=== PATIENT | female | born 1965 | race Caucasian/White ===

== ENCOUNTER 2021-02-25 07:52 | Outpatient (CLI) | payer OTHER, SELFPAY ==
--- NOTE | ~2021-02-25 | DEXA_ITS ---
Bone Density Report Name: Gayatri Marr Age: 55 Sex: Female Ethnicity: White Date of : 1965 Indication: postmenopausal; parental hip fracture; Referring Provider: Vasquez Gary Study: Bone densitometry was performed. Exam Date: February 25, 2021 Accession number: [id number] Bone Density: Region BMD T-score Z-score Classification AP Spine (L1-L4) 0.939 -1.0 0.2 Normal Femoral Neck (Left) 0.629 -2.0 -0.8 Osteopenia Total Hip (Left) 0.910 -0.3 0.5 Normal Total Hip Bilateral Avg 0.897 -0.4 0.4 Normal Femoral Neck (Right) 0.672 -1.6 -0.4 Osteopenia Total Hip (Right) 0.883 -0.5 0.3 Normal World Health Organization criteria for BMD impression classify patients as: Normal (T-score at or above -1.0), Osteopenia (T-score between -1.0 and -2.5), or Osteoporosis (T-score at or below -2.5). 10-year Fracture Risk(1): Major Osteoporotic Fracture 15% Hip Fracture 0.9% Reported Risk Factors: [place] (), Neck BMD=0.629, BMI=32.4, parental fracture (1) FRAX(R) Version 3.08. Fracture probability calculated for an untreated patient. Fracture probability may be lower if the patient has received treatment. Previous Exams: Region Exam Age BMD T-score BMD Change BMD Change Date g/cm2 vs Baseline vs Previous AP Spine(L1-L4) 02/25/2021 55 0.939 -1.0 -0.065(-6.5%)# -0.047(-4.8%)* 10/06/2018 52 0.986 -0.6 -0.018(-1.8%)# -0.018(-1.8%)# 11/29/2003 38 1.004 -0.4 Total Hip(Left) 02/25/2021 55 0.910 -0.3 -0.021(-2.2%)# 0.038(4.4%)* 10/06/2018 52 0.871 -0.6 -0.059(-6.3%)# -0.059(-6.3%)# 11/29/2003 38 0.930 -0.1 Total Hip(Right) 02/25/2021 55 0.883 -0.5 -0.045(-4.9%)# -0.005(-0.6%) 10/06/2018 52 0.888 -0.4 -0.040(-4.3%)# -0.040(-4.3%)# 11/29/2003 38 0.928 -0.1 *Denotes significance at 95% confidence level, LSC for AP Spine = 0.022 g/cm2, LSC for Total Hip = 0.027 g/cm2 Clinical Information Provided by Patient: Parent has had a hip fracture Has used the following medications: Vitamin D, Calcium Patient maximum height was 63 Menopause Age: 45 No regular weight bearing exercise Drinks caffeinated beverages Onset of menses at age 12 Number of children 2 Impression: The patient has low bone mass, based on the Left Femoral Neck T-score. The patient has an estimated ten-year risk of hip fracture of 0.9% and an estimated ten-year risk of major fracture of 15%, based on the WHO FRAX algorithm. The patient has risk
--- NOTE | ~2021-02-25 | MM_ITS ---
EXAMINATION: MM screening jessica BI w keon HISTORY: Screening TECHNIQUE: Craniocaudal and mediolateral oblique 3-D tomosynthesis images were obtained and synthetic 2-D images were generated. CAD analysis was submitted and interpreted. COMPARISON: Comparison to multiple prior studies sequentially, with oldest reviewed study dated 03/21. BREAST PARENCHYMAL COMPOSITION: There are scattered areas of fibroglandular density. FINDINGS: There is no evidence of suspicious mass, calcification, or architectural distortion to sugg est malignancy in either breast. There has been no suspicious interval change. IMPRESSION: 1. No mammographic evidence of malignancy. 2. Recommend routine screening mammography in one year. BI-RADS Category 1: Negative Reviewed, dictated and finalized at location A.
== END 2021-02-25 07:53 | disposition home or self-care (01) ==
LOC: ANHIMG 07:54
PROVIDERS: PCP Family Medicine; Visit Provider Physician Assistant
DX: Z12.31 Encounter for screening mammogram for malignant neoplasm of breast (principal); Z13.820 Encounter for screening for osteoporosis; M85.852 Other specified disorders of bone density and structure, left thigh; M85.851 Other specified disorders of bone density and structure, right thigh
CPT/HCPCS: 77063; 77067; 77080

== ENCOUNTER 2022-06-27 08:03 | Outpatient (CLI) | payer OTHER, SELFPAY ==
--- NOTE | ~2022-06-27 | MM_ITS ---
EXAMINATION: MM screening jessica BI w keon HISTORY: Screening mammogram TECHNIQUE: Craniocaudal and mediolateral oblique 3-D tomosynthesis images were obtained and synthetic 2-D images were generated. CAD analysis was submitted and interpreted. COMPARISON: 02/25/2021, 11/15/2019, 10/06/2018 BREAST PARENCHYMAL COMPOSITION: There are scattered areas of fibroglandular density. FINDINGS: Scattered benign-appearing calcifications are present. There is no suspicious mass, calcifi cation, or architectural distortion to suggest malignancy in either breast. There has been no suspici ous interval change. IMPRESSION: 1. No mammographic evidence of malignancy. 2. Recommend routine screening mammography in one year. BI-RADS Category 2: Benign finding(s). Reviewed, dictated and finalized at location A.
== END 2022-06-27 08:04 | disposition home or self-care (01) ==
LOC: ANHIMG 08:05
PROVIDERS: PCP Family Medicine; Visit Provider Physician Assistant
DX: Z12.31 Encounter for screening mammogram for malignant neoplasm of breast (principal)
CPT/HCPCS: 77063; 77067

== ENCOUNTER 2023-02-05 15:52 | Emergency (ER) | payer OTHER, SELFPAY ==
--- NOTE | 2023-02-05 16:01 | ED.FEMALEGU ---
HPI - Female Genitourinary General Chief complaint: Urogenital-Female Stated complaint: UTI SYMPTOMS Source: patient and RN notes reviewed Mode of arrival: ambulatory Limitations: no limitations History of Present Illness HPI Narrative: [age] year old female presented for complaint of urinary frequency and urgency, and feels she is urinating less amount. Onset yesterday. Denies dysuria, hematuria, abdominal pain, flank pain, n/v/d/f/c. States last UTI was 18 months ago. Not taking anything for symptoms. Related Data Allergies Allergy/AdvReac Type Severity Reaction Status Date / Time No Known Allergies Allergy Verified 02/05/23 15:59 Review of Systems Review of Systems: CONSTITUTIONAL: Denies body aches, fever, chills, or sweats. CARDIOVASCULAR: Denies chest pain, palpitations, or edema. RESPIRATORY: Denies cough or dyspnea. GASTROINTESTINAL: Denies abdominal pain, nausea, vomiting, or diarrhea. GENITOURINARY: Reports frequency, urgency denies dysuria, hematuria, flank pain SKIN: Denies rash, itching, or wounds. MUSCULOSKELETAL: Denies back pain or myalgia. [facility]LY [facility] Past Medical History Medical History GERD (gastroesophageal reflux disease) Hx of adenomatous colonic polyps Hyperlipidemia Surgical History Surgical History Hx laparoscopic cholecystectomy Hx of colonoscopy Family History Family History Father Family history of malignant neoplasm of esophagus Hypertension Mother Family history of hypercholesterolemia Hypertension Family history of arthritis Grandparent Hypertension Other Family history of malignant neoplasm of breast in first degree relative Social History Social History Smoking status: Never smoker Alcohol intake: current Drinks per week: 3 Alcohol use details: beer wine Lack of Transportation: No Lack of Food: Never True Current Housing: I Have Housing Concerned About Future Housing: No Difficulty Paying Gas/Electric Bills: No Difficulty Paying for Meds: No Currently Unemployed: No Education: Master's Degree or Higher Difficulty w/ Childcare or Family Care: No Comments At time of signature, I have reviewed and agree with nursing past medical, surgical, social and family history unless otherwise noted. Please see nursing chart for further information. There is no relevant family history pertinent to the presenting complaint Exam Narrative: GENERAL: Well-appearing and in no acute distress. HEAD: Normocephalic EYES: EOMI. . ENT: Mucous membranes pink and moist. NECK: Normal AROM. Supple. CHEST: No respiratory distress. Clear to auscultation. HEART: Regular rate and rhythm. ABDOMEN: Soft, nontender, nondistended, normal active bowel sounds. No CVA tenderness MUSCULOSKELETAL: No bony tenderness. SKIN: Warm, dry, no rash. NEURO: No focal deficits. Alert and oriented x3. Gait steady. PSYCH: Normal affect. No signs of depression or anxiety. Course Course Emergency Course: Patient is aware of diagnosis, understands and agrees to treatment plan. Anticipatory guidance given. Patient agrees to follow-up as directed and is aware of reasons to seek care at the emergency department. Portions of this record may have been created with voice recognition software Level of Care: Express Care Visit Vital Signs Vital signs: Reviewed MDM - Female Genitourinary MDM Narrative Medical decision making narrative: Results of urine reviewed with patient. Advised supportive measures and signs/symptoms to go to the ER. Pt is appropriate for outpt treatment and f/u. Differential Diagnosis Differential diagnosis: Likely urinary tract infection and cystitis Discharge Plan Discharge Clinical Impression: Urinary tract
[2023-02-05 16:03] VITALS: BP 142/83; PULSE 104; RESP 16; TEMP 36.5; O2SAT 98
== END 2023-02-05 16:19 | disposition home or self-care (01) ==
PROVIDERS: Emergency Provider Nurse Practitioner Family; PCP Family Medicine
DX: N39.0 Urinary tract infection, site not specified (principal); K21.9 Gastro-esophageal reflux disease without esophagitis; E78.5 Hyperlipidemia, unspecified
CPT/HCPCS: 81003; 87086; 87088; 99213; G0463

== ENCOUNTER 2023-08-25 16:29 | Outpatient (CLI) | payer OTHER, SELFPAY ==
--- NOTE | ~2023-08-25 | MM_ITS ---
EXAMINATION: MM screening [facility] BI w keon HISTORY: Screening mammogram TECHNIQUE: Craniocaudal and mediolateral oblique 3-D tomosynthesis images were obtained and synthetic 2-D images were generated. CAD analysis was submitted and interpreted. COMPARISON: 06/27/2022, 02/25/2021, 11/15/2019 BREAST PARENCHYMAL COMPOSITION: There are scattered areas of fibroglandular density. FINDINGS: RIGHT BREAST: There is a low-density mass in the middle third of the upper-outer quadrant breast appr oximately 8 cm from the nipple. LEFT BREAST: No suspicious mass, calcification, or architectural distortion are identified to suggest malignancy. There has been no suspicious interval change. IMPRESSION: 1. Right breast mass. 2. Additional mammographic views and possible breast ultrasound are recommended. BI-RADS Category 0: Incomplete: Needs additional imaging evaluation. Reviewed, dictated and finalized at location A. IMPRESSION: 1. Right breast mass. 2. Additional mammographic views and possible breast ultrasound are recommended . BI-RADS Category 0: Incomplete: Needs additional imaging evaluation.
== END 2023-08-25 16:30 | disposition home or self-care (01) ==
LOC: ANHIMG 16:32
PROVIDERS: PCP Family Medicine; Visit Provider Family Medicine
DX: Z12.31 Encounter for screening mammogram for malignant neoplasm of breast (principal); R92.8 Other abnormal and inconclusive findings on diagnostic imaging of breast
CPT/HCPCS: 77063; 77067

== ENCOUNTER 2023-09-15 09:15 | Outpatient (CLI) | payer OTHER, SELFPAY ==
--- NOTE | ~2023-09-15 | MMUS_ITS ---
EXAMINATION: MM diagnostic jesscia RT w koen, US breast RT limited HISTORY: Low density mass in middle third of upper inner quadrant of right breast approximately 8 cm from nipple was reported on 08/25/2023 2 bilateral screening mammogram TECHNIQUE: Additional 3-D tomosynthesis images of the right breast were performed and synthetic 2-D i mages were generated. CAD analysis was submitted and interpreted. High resolution upper outer quadran t right breast ultrasound was performed. COMPARISON: 08/25/2023 monos screening mammogram FINDINGS: MAMMOGRAPHIC FINDINGS: Approximately 3 mm circumscribed mass with halo sign is confirmed posteriorly in the upper outer righ t breast, benign in appearance mammographically, likely a small cyst. ULTRASOUND: 11:00 5 cm from nipple: 2 x 3.4 x 3.3 mm circumscribed oval sonolucency without internal vascularity or posterior shadowing, consistent with small cyst or other benign process. IMPRESSION: 1. Benign finding 2. Routine annual mammographic screening is recommended BI-RADS Category 2: Benign finding(s). Reviewed, dictated and finalized at location A. ITY TESTER IMPRESSION: 1. Benign finding 2. Routine annual mammographic screening is recommended BI-RADS Category 2: Benign finding(s).
== END 2023-09-15 09:16 ==
LOC: MICIMG 09:16
PROVIDERS: PCP Family Medicine; Visit Provider Family Medicine
DX: R92.8 Other abnormal and inconclusive findings on diagnostic imaging of breast (principal)
CPT/HCPCS: 76642; 77061; 77065; G0279

== ENCOUNTER 2025-02-22 11:05 | Outpatient (CLI) | payer OTHER, SELFPAY ==
--- NOTE | ~2025-02-22 | MM_ITS ---
EXAMINATION: MM screening jessica BI w keon HISTORY: Screening TECHNIQUE: Craniocaudal and mediolateral oblique 3-D tomosynthesis images were obtained and synthetic 2-D images were generated. CAD analysis was submitted and interpreted. COMPARISON: Comparison to multiple prior studies sequentially, with oldest reviewed study dated 09/25. BREAST PARENCHYMAL COMPOSITION: Not dense: There are scattered areas of fibroglandular density. FINDINGS: There is no evidence of suspicious mass, calcification, or architectural distortion to sugg est malignancy in either breast. There has been no suspicious interval change. IMPRESSION: 1. No mammographic evidence of malignancy. 2. Recommend routine screening mammography in one year. BI-RADS Category 1: Negative Reviewed, dictated and finalized at location A.
== END 2025-02-22 11:06 | disposition home or self-care (01) ==
LOC: MICIMG 11:06
PROVIDERS: PCP Family Medicine; Visit Provider Family Medicine
DX: Z12.31 Encounter for screening mammogram for malignant neoplasm of breast (principal)
CPT/HCPCS: 77063; 77067

== ENCOUNTER 2025-06-02 07:36 | Outpatient (CLI) | payer OTHER, SELFPAY ==
--- NOTE | ~2025-06-02 | DEXA_ITS ---
Bone Density Report Name: DONALD PURVIS Age: 59 Sex: Female Ethnicity: White Date of : 1965 Indication: postmenopausal; screening for osteoporosis; parental hip fracture; Referring Provider: FANY FELIPE Study: Bone densitometry was performed. Exam Date: June 02, 2025 Accession number: [id number] Bone Density: Region BMD T-score Z-score Classification AP Spine(L1-L4) 0.905 -1.3 0.2 Osteopenia Femoral Neck (Left) 0.677 -1.5 -0.2 Osteopenia Total Hip (Left) 0.899 -0.4 0.7 Normal Femoral Neck (Right) 0.719 -1.2 0.2 Osteopenia Total Hip (Right) 0.885 -0.5 0.6 Normal Total Hip Mean 0.892 -0.5 0.7 Normal World Health Organization criteria for BMD impression classify patients as: Normal (T-score at or above -1.0), Osteopenia (T-score between -1.0 and -2.5), or Osteoporosis (T-score at or below -2.5). 10-year Fracture Risk(1): Major Osteoporotic Fracture 16% Hip Fracture 0.7% Reported Risk Factors: [place] (), Neck BMD=0.677, BMI=31.7, parental fracture (1) FRAX(R) Version 3.08. Fracture probability calculated for an untreated patient. Fracture probability may be lower if the patient has received treatment. Clinical Information Provided by Patient: Parent has had a hip fracture Has used the following medications: Vitamin D, Calcium Patient maximum height was 62 Menopause Age: 45 Drinks caffeinated beverages Onset of menses at age 11 Number of children 2 Impression: The patient has low bone mass, based on the Left Femoral Neck T-score. The patient has an estimated ten-year risk of hip fracture of 0.7% and an estimated ten-year risk of major fracture of 16%, based on the WHO FRAX algorithm. The patient has risk factors, including: parental hip fracture. Discussion: BONE DENSITY IS LOW AT ONE OR MORE SKELETAL SITES. This patient's lowest T-score is low at one or more skeletal sites. It meets the World Health Organization's (WHO) criteria for ?low bone mass? (T-score between -1.0 and -2.5). The patient's 10-year risk of fracture as calculated by FRAX is less than the threshold where pharmacological therapy is recommended by the National Osteoporosis Foundation (NOF). However, all treatment decisions require clinical judgment and consideration of individual patient factors, including patient preferences, comorbidities, previous drug use, risk factors not captured in the FRAX model (e.g., frailty, falls, vitamin D deficiency, increased bone turnover, interval significant decline in bone density) and possible under or overestimation of fracture risk by FRAX. The patient should follow a healthful lifestyle (good nutrition with adequate calcium and vitamin D, and appropriate weight-bearing exercise). Follow-Up: Consider repeating this study in 2 to 3 years to reassess this patient's status, or sooner if there is some new clinical indication. Reported by: AISLINN on 06/02/2025 8:15:00 AM. Reviewed, dictated and finalized at location A.
--- OUTSIDE RECORDS SUMMARY | 2025-06-02 07:40 | XMS_ITS | Clinical Summary ---
Author Organization [facility] Address [address], [facility] [address] [place] [address] Phone Care Team Providers Care Variety Saw Operator Name Role Phone Kody Kraus MD Primary Care Provider [phone] Allergies No known active allergies Medications fluticasone (FLOVENT HFA) 220 MCG/ACT Aerosol take 2 Puffs by inhalation 2 times daily. Active Ferrous Sulfate (IRON) 325 (65 FE) MG Tablet daily. Active calcium 500 MG Tablet daily. Active Multiple Vitamin (MULTIVITAMINS) Capsule daily. Active omeprazole (PRILOSEC) 20 MG CAPSULE DELAYED RELEASE daily. Acti ve triamterene-hyd rochlorothiazid e (MAXZIDE) 37.5-25 MG Tablet daily. Active polyethylene glycol (MIRALAX) Powder Mix the entire bottle with 64 oz of a clear liquid. Use as directed by the office for colonoscopy prep. 255 g 0 6 Active Active Problems Problem Noted Date Diagnosed Date Eosinophilic esophagitis Overview (10/22/2015): Presently considerably improved. Colon polyp, hyperplastic GERD (gastroesophageal reflux disease) Overview (10/22/2015): Controlled with omeprazole once a day Adenomatous colon polyp Overview (10/22/2015): multiple Social History Tobacco Use Types Packs/Day Years Used Date Smoking Tobacco: Never Assessed Comments Unknown Sex and Gender Information Value Date Recorded Sex Assigned at Not on file Legal Sex Female 11:41 PM CDT Gender Identity Not on file Sexual Orientation Not on file Plan of Treatment Health Maintenance Due Date Last Done Comments Hepatitis C Virus (HCV) Screening 1965 TdaP Immunization 1965 Pap Smear 1984 Cervical Cancer Screening (CCS) 1993 HPV/Cotest 1993 Cologuard 2008 Immunochemical Fecal Occult Blood 2008 Pneumococcal Immunization (5 0+ years) (1 of 1 - PCV) 2013 Zoster Immunization (1 of 2) 2013 Colonoscopy 10/13/2022 10/13/2019, 07/30/2016, 04/26/2015 Colorectal Cancer Screening 10/13/2022 SARS-COV-2 Immunization ( - 2023- season) 2024 Influenza Immunization (#1) 2025 Respiratory Syncytial Virus (RSV) Immunization (Adult) (1 - 1-dose 75+ series) 2038 Hepatitis B Immunization Aged Out No longer eligible based on patient's age to complete this topic Human Papillomavirus (HPV) Immunization Aged Out No longer eligible b ased on patient's age to complete this topic Meningococcal Immunization (ACWY) Aged Out No longer eligible b ased on patient's age to complete this topic Rotavirus Immunization Aged Out No lo nger eligible based on patient's age to complete this topic Procedures Procedure Name Priority Date/Time Associated Diagnosis Comments COLONOSCOPY Routine 10/13/2019 from Last 3 Months or Most Recently Relevant to Health Maintenance Results * COLONOSCOPY (10/13/2019) Vamshi Huffman DO PROCEDURE/MINOR SURGICAL ORDERA BLES Final Result from Last 3 Months or Most Recently Relevant to Health Maintenance Insurance [facility] Care Teams Variety Saw Operator Relationship Specialty Start Date End Date Kody Kraus MD [address] [place] [address] PCP - General Family Medicine 08/01/16
--- OUTSIDE RECORDS SUMMARY | 2025-06-02 07:40 | XMS_ITS | Clinical Summary ---
Author Organization [facility] Address [address] [place] [address] Care Team Providers Care Instructor Industrial Design Name Role Phone Unavailable Primary Care Provider Unavailabl e Allergies No known active allergies Encounters Date Type Department Care Team Description 05/30/2025 External Device Data ST[facility] ABSTRACTION Provider, Abstract 04/18/2025 External Device Data [facility] ABSTRACTION Provider, Abstract 03/21/2025 External Device Data ST[facility] ABSTRACTION Provider, Abstract 03/14/2025 External Device Data ST[facility] ABSTRACTION Provider, Abstract from Last 3 Months Immunizations Immunization Administration Dates Next Due (COMIRNATY)(12 YR UP) COVID- 19 VACCINE, MRNA, SPIKE PROTEIN, LNP, JOZEF(PF) 30 MCG/0.3 ML IM SUSP 08/14/2023 (SHINGRIX)(50 YRS UP) ZOSTER VACCINE RECOMBINANT, 0.5 ML, IM 02/19/2023 INFLUENZA VACCINE QUADRIVALENT 6 MOS UP PF IM ,09/01/2022 Social History Tobacco Use Types Packs/Day Years Used Date Smoking Tobacco: Never Assessed Comments Unknown Sex and Gender Information Value Date Recorded Sex Assigned at Not on file Legal Sex Female 11:10 AM CLIENT MANAGER Gender Identity Not on file Sexual Orientation Not on file Plan of Treatment Health Maintenance Due Date Last Done Comments DTAP/TDAP/TD VACCINES (1 - Tdap) 1982 HPV/Cotest (21-29) 1984 CERVICAL CANCER SCREENING 1993 HPV/Cotest (30-65) 1993 PAP SMEAR 1993 BREAST CANCER SCREENING 2003 COLORECTAL SCREENING 2008 Colorectal Cancer Screening 2008 FIT-DNA Q 3 years 2008 FIT/FOBT Q 1 year 2008 Flex Sig/CT Colonography Q 5 years 2008 ZOSTER VACCINE (2 of 2) 04/16/2023 02/19/2023 COVID-19 Vaccine (2 - 2024-25 season) 2024 INFLUENZA VACCINE (#1) 2025 08/13/2023, 2021 RSV VACCINE (60+ or ) (1 - 1-dose 75+ series) 2038 Insurance RX [facility] [employer]
--- OUTSIDE RECORDS SUMMARY | 2025-06-02 07:40 | XMS_ITS | Clinical Summary ---
Author Organization [facility] Address [address] [place] [address] Care Team Providers Care Coal Screener Name Role Phone Tigist Lemons MD Primary Care Provider [phone] Source Comments [facility],non-owned Affiliates and Associated Physician Practices is amultiple site organization consisting of ambulatory clinics and hospital sitesin [place], [place], [place] and [place]. This disclosure is being madepursuant to the Care Everywhere program and may not contain all information available regarding this patient. Last updated 18.[facility] Allergies No known active allergies Medications * Be aware that medications may not be up to date on this document. Alwaysverify current medications with the patient. omeprazole (PRILOSEC) 20 MG capsule 7 Active metFORMIN ER 24hr (GLUCOPHAGE XR) 500 MG tablet 1 (one) tablet DAILY 6 Active triamterene-hydro CHLOROthiazide (MAXZIDE-25) 37.5-25 MG tablet TK 1 T PO QAM. GEF MAXZIDE 1 8 Active atorvastatin (LIPITOR) 20 MG tablet Take 1 (one) tablet by mouth once daily 1 8 Active losartan (Cozaar) 25 MG tablet Take 1 (one) tablet by mouth once daily 4 Active Tirbanibulin (Klisyri) 1 % OINTIndications:A ctinic Keratosis 1 packet by Apply externally route once daily after dinner Limit each treatment area to 100 cm^2 Reasons: Actinic Keratosis 5 Each 3 5 Active fluorouracil (Efudex) 5 % creamIndications: Actinic Keratosis Apply to affected area twice daily for two weeks. Reasons: Actinic Keratosis 40 g 5 Active triamcinolone acetonide (Kenalog) 0.1 % creamIndications: Notalgia paresthetica Apply to itchy rash on torso twice daily. 30 days supply. 80 g 5 Active Active Problems Problem Noted Date Diagnosed Date Actinic keratoses 11/01/2020 Assessment & Plan (11/01/2020 11:01 AM JAR FILLER): Multiple Chest and forearms Plan field therapy with efudex cream BID x 2 weeks We reviewed expected response Adenomatous colon polyp 05/10/2018 Overview (05/10/2018): Overview: multiple Colon polyp, hyperplastic 05/10/2018 Eosinophilic esophagitis 05/10/2018 Overview (05/10/2018): Overview: Presently considerably improved. GERD (gastroesophageal reflux disease) 8 Overview (05/10/2018): Overview: Controlled with omeprazole once a day Personal history of other malignant neoplasm of skin 12/17/2012 Assessment & Plan (11/01/2020 11:00 AM JAR FILLER): No evidence of recurrence Self exams FBSE Photoprotection Benign neoplasm of skin 2011 Immunizations Immunization Administration Dates Next Due INFLUENZA VACCINE 09/12/2021,08/01/2020,09/05/20 19 Family History Medical History Relation Name Comments None Known Brother Cancer Father Cancer - Skin, Non Melanoma Father None Known Maternal Aunt None Known Maternal Grandfather None Known Maternal Grandmother None Known Maternal Uncle None Known Mother None Known Other Cancer - Skin, Non Melanoma Paternal Aunt None Known Paternal Grandfather None Known Paternal Grandmother None Known Paternal Uncle None Known Sister Allergy (Severe) Neg Hx Asthma Neg Hx CVA Neg Hx Cancer - Breast Neg Hx Cancer - Other Neg Hx Cancer - Skin, Melanoma Neg Hx Eczema Neg Hx Hemophilia Neg Hx Psoriasis Neg Hx Rashes/Skin Problems Neg Hx Relation Name Status Comments Brother Father Maternal Aunt Maternal Grandfather Maternal Grandmother Maternal Uncle Mother Other Paternal Aunt Paternal Grandfather Paternal Grandmother Paternal Uncle Sister Social History Tobacco Use Types Packs/Day Years Used Date Smoking Tobacco: Never Smokeless Tobacco: Never Tobacco Cessation:Counseling Given: Not Answered Alcohol Use Standard Drinks/Week Comments Yes 0 (1 standard drink = 0.6 oz pur e alcohol) Comments Unknown Sex and Gender Information Value Date Recorded Sex Assigned at Not on file Legal Sex Female 5:19 PM JAR FILLER Gender Identity Not on file Sexual Orientation Not on file Last Filed Vital Signs Vital Sign Reading Time Taken Comments Blood Pressure 134/80 01/24/2016 1:11 PM CDT Pulse 92 01/24/2016 1:11 PM CDT Temperature - - Respiratory Rate - - Oxygen Saturation 99% 01/25/2013 10:21 AM CDT Inhaled Oxygen Concentration - - Weight 77.1 kg (170 lb) 01/25/2013 10:21 AM CDT Height 160 cm (5' 3) 01/25/2013 10:21 AM CDT Body Mass Index 30.11 01/25/2013 10:21 AM CDT Plan of Treatment Upcoming Encounters Date Type Department Care Team (Late st Contact Info) Description 06/16/2025 9:20 AM CDT Office Visit [facility] - Dermatology [address] [place] [address], [facility] [place] [id number] Colleen Ortiz PA [address] [place] [address] [address] [place] [id number] Health Maintenance Due Date Last Done Comments COLOGUARD (AGES 45-75) - COLON CA SCREENING 1965 COLON MONITORING 1963 COLONOSCOPY - COLON CA SCREENING 1963 CT COLONOGRAPHY - COLON CA SCREENING 1963 Colorectal Cancer Screening 1963 FIT - COLON CA SCREENING 1963 FLEX SIG - COLON CA SCREENING 1963 MAMMOGRAM 1963 HIV SCREENING 1978 HEPATITIS C SCREENING 11/09/1981 DTAP/TDAP/TD VACCINES (1 - Tdap) 1982 PAP SMEAR 1984 PNEUMOCOCCAL VACCINE 50+ (1 of 1 - PCV) 2013 ZOSTER VACCINE (1 of 2) 2013 COVID-19 VACCINE ( - season) 2024 DEPRESSION SCREENING 10/26/2024 INFLUENZA VACCINE (#1) 2025 3, 09/01/2022, 09/12/2021, Additional history exists Respiratory Syncytial Virus (RSV) Vaccine Pt: or over 60 yrs (1 - 1-dose 75+ series) 2038 HEPATITIS B VACCINE Aged Out No longe r eligible based on patient's age to complete this topic HIB VACCINE Aged Out No longer eligi ble based on patient's age to complete this topic HPV VACCINE Aged Out No longer eligi ble based on patient's age to complete this topic MENINGOCOCCAL (Group B) VACCINE SHARED DECISION-MAKING Aged Out No longer eligible based on patient's age to complete this topic MENINGOCOCCAL GROUPS A/C/Y/W VACCINE Aged Out No longer eligible based on patient's age to complete this topic Insurance [facility] Care Teams Coal Screener Relationship Specialty Start Date End Date Tigist Lemons MD [address] [address] PCP - General Family Medicine 02/05/24
== END 2025-06-02 07:37 | disposition home or self-care (01) ==
LOC: ANHIMG 07:37
PROVIDERS: PCP Family Medicine; Visit Provider Family Medicine
DX: Z78.0 Asymptomatic menopausal state (principal); Z13.820 Encounter for screening for osteoporosis; M85.88 Other specified disorders of bone density and structure, other site; M85.852 Other specified disorders of bone density and structure, left thigh; M85.851 Other specified disorders of bone density and structure, right thigh
CPT/HCPCS: 77080

== ENCOUNTER 2025-08-08 08:26 | Emergency (ER) | payer OTHER, SELFPAY ==
--- NOTE | 2025-08-08 08:27 | ED.FEMALEGU ---
HPI - Female Genitourinary General Chief complaint: Urogenital-Female Stated complaint: UTI SYMPTOMS Time Seen by Provider: 08/08/25 08:26 Source: patient Mode of arrival: ambulatory Limitations: no limitations History of Present Illness HPI Narrative: Gayatri is a 59-year-old female patient presenting to the clinic today with complaints of possible UTI x 2 days. She reports having burning with urination, low urine output, urinary urgency, and discoloration of urine. He denies any fevers, chills, body aches. No back pain or lower abdominal pain. No fevers, chills, body aches. Related Data Home Medications ?Medication ?Instructions ?Recorded ?Confirmed ?Last Taken ?Type fluorouracil 5 % topical cream applic topical 02/02/25 02/02/25 Unknown History triamcinolone acetonide 0.1 % applic topical 02/02/25 02/02/25 Unknown History topical cream Allergies Allergy/AdvReac Type Severity Reaction Status Date / Time No Known Allergies Allergy Verified 02/02/25 10:56 Review of Systems Review of Systems: Pertinent positives per HPI. Patient denies any fever, chills, rash, headache, visual changes, dizziness, cough, runny nose, sore throat, shortness of breath, chest pain, palpitations, nausea, vomiting, diarrhea, constipation, abdominal pain, or any urinary issues. [facility] Past Medical History Medical History GERD (gastroesophageal reflux disease) Surgical History Surgical History Hx laparoscopic cholecystectomy Family History Family History Father Family history of malignant neoplasm of esophagus Hypertension Mother Family history of hypercholesterolemia Hypertension Family history of arthritis Grandparent Hypertension Other Family history of malignant neoplasm of breast in first degree relative Social History Social History Smoking status: Never smoker Alcohol intake: current Alcohol use details: beer wine occasionally Substance use: never Substance use type: does not use Do You Feel Safe in your Home?: Yes Lack of Transportation: No Lack of Food: Never True Current Housing: I Have Housing Concerned About Future Housing: No Difficulty Paying Gas/Electric Bills: No Difficulty Paying for Meds: No Currently Unemployed: No Education: Master's Degree or Higher Difficulty w/ Childcare or Family Care: No Comments At the time of my signature, I reviewed and agree with the nursing past medical, surgical, social, and family history. There is no relevant family history pertinent to the patient complaint. Exam Narrative: General: Well-developed, well nourished, in no apparent distress. Head: Normocephalic, atraumatic. Cardio: Regular rate and rhythm, s1 and s2 normal, no murmur appreciated. Resp: Clear to auscultation bilaterally, no rhonchi, rales, wheezing or rubs. Abdomen: Soft, pliable, bowel sounds present in all quadrants, non-tender to palpation, no organomegly, no CVAT tenderness. Course Course Emergency Course: Portions of this record may have been created with voice recognition software. Level of Care: Express Care Visit Vital Signs Vital signs: Vital Signs Temperature 36.5 C 08/08/25 08:39 Pulse Rate 80 08/08/25 08:39 Respiratory Rate 20 08/08/25 08:39 Blood Pressure 145/82 H 08/08/25 08:39 Pulse Oximetry 100 08/08/25 08:39 Oxygen Delivery Room Air 08/08/25 08:39 Temperature 36.5 C 08/08/25 08:39 Pulse Rate 80 08/08/25 08:39 Respiratory Rate 20 08/08/25 08:39 Blood Pressure 145/82 H 08/08/25 08:39 Pulse Oximetry 100 08/08/25 08:39 Oxygen Delivery Room Air 08/08/25 08:39 Vital signs reviewed MDM - Female Genitourinary MDM Narrative Medical decision making narrative: At the time of visit patient is resting comfortably on the exam table. Patient appears to be nontoxic. Complaints of possible UTI x 2 days. She reports having burning with urination, low urine output, urinary urgency, and discoloration of urine. He denies any fevers, chills, body aches. No back pain or lower abdominal pain. No fevers, chills, body aches. Patient denies taking any azo. Has been trying to increase fluids. On exam patient's abdomen is soft and pliable, nontender palpation, sounds present all 4 quadrants, no CVAT tenderness, no organomegaly. Labs: Urinalysis positive for leukocytes, blood, protein, ketones, and bili. We will send urine for culture Plan: I suspect patient has urinary tract infection. Prescription for cephalexin was sent to the pharmacy. Supportive measures were discussed with the patient and they voiced understanding discharge instructions and agrees to treatment plan. Return precautions reviewed Differential Diagnosis Differential diagnosis: Likely urinary tract infection and cystitis Discharge Plan Discharge Clinical Impression: UTI (urinary tract infection) Qualifiers: Urinary tract infection type: acute cystitis Hematuria presence: with hematuria Qualified Code(s): N30.01 - Acute cystitis with hematuria Patient Disposition: Home Condition: Stable Instructions: Antibiotic Form, Urinary Tract Infection in Women (ED) Additional Instructions: Urinalysis positive for leukocytes, protein, and blood. We will send urine for culture Take cephalexin as prescribed Increase fluids and stay well hydrated Wipe front to back. May use wet wipes. Avoid tub baths If sexually active- pee before and after intercourse. Wear cotton panties Avoid tight clothing up against the genitals Follow up with your PCP in 1 week if symptoms persist. Patient Language: Mexican Prescriptions: New cephalexin 500 mg capsule 500 mg PO Q12H 7 Days Qty: 14 0RF No Action triamcinolone acetonide 0.1 % cream topical fluorouracil 5 % cream topical omeprazole 20 mg capsule,delayed release(DR/EC) See Rx Instructions .ROUTE .COMPLEX Qty: 180 3RF Dose Instruction: TAKE 1 CAPSULE TWICE DAILY Rx Instructions: TAKE 1 CAPSULE TWICE DAILY losartan 25 mg tablet 25 mg PO DAILY Qty: 90 2RF metformin 500 mg tablet extended release 24 hr 1,000 mg PO BID Qty: 360 1RF triamterene-hydrochlorothiazid 37.5-25 mg tablet See Rx Instructions .ROUTE .COMPLEX Qty: 90 1RF Dose Instruction: TAKE 1 TABLET DAILY Rx Instructions: TAKE 1 TABLET DAILY atorvastatin 20 mg tablet See Rx Instructions .ROUTE .COMPLEX Qty: 90 1RF Dose Instruction: TAKE 1 TABLET DAILY Rx Instructions: TAKE 1 TABLET DAILY Follow-up/Referrals: Tigist Lemons MD [Primary Care Provider, [facility]] Time of Disposition: 08:49 Quality NIHSS Nursing Documentation ED NIHSS nursing documentation: reviewed/agree
[2025-08-08 08:39] VITALS: BP 145/82; PULSE 80; RESP 20; TEMP 36.5; O2SAT 100
[2025-08-08 08:50] LABS: EDUAAPPEAR Cloudy; EDUABILI 1+ (Negative); EDUABLOOD 3+ (Negative); EDUACOLOR1 Pink; EDUAGLUCOSE Negative (Negative); EDUAKETONE Trace (Negative); EDUALEUKO 3+ (Negative); EDUANITRATE Negative (Negative); EDUAPH 7.5; EDUAPROTEIN 2+ (Negative); EDUASPGRAVITY 1.020; EDUAUROBILI 0.2
== END 2025-08-08 08:52 | disposition home or self-care (01) ==
PROVIDERS: Emergency Provider Nurse Practitioner Family; PCP Family Medicine
DX: N30.01 Acute cystitis with hematuria (principal); K21.9 Gastro-esophageal reflux disease without esophagitis
CPT/HCPCS: 81003; 87086; 99213; G0463